=== PATIENT | female | born 1935 | race Caucasian/White ===

== ENCOUNTER → 2017-04-11 | Outpatient (REF) | payer MEDICARE, OTHER ==
[2017-04-11 11:13] LABS: CALCIUM LEVEL 9.8 MG/DL (8.8-10.2)
== END ==
LOC: M LABDRAW1 09:07
PROVIDERS: ATTEND Internal Medicine Endocrinology, Diabetes & Metabolism
DX: M81.0 Age-related osteoporosis without current pathological fracture (principal); E55.9 Vitamin D deficiency, unspecified

== ENCOUNTER → 2017-06-22 | Outpatient (CLI) | payer MEDICARE, OTHER ==
[~2017-06-22] MED LIST: AMLO5TAB2 PO; BYST10TA2 PO; CINA30TA PO; CVS20TAB PO; GAS-80CH PO; LEVO50TA5 PO; MECL12.575 PO; OCUVTAB4 PO; OSCA200T PO; SIMV20TA2 PO; VITA100067 PO
--- NOTE | 2017-06-22 11:15 | REP ---
Thoracic spine three views: Comparison is 04/30/2014. Diffuse demineralization is again identified. There is thoracic scoliosis convex right in the mid to lower thoracic spine and left in the lumbar spine. This is unchanged. There is disc space narrowing and osteophytic formation at every thoracic level, unchanged, compatible with diffuse degenerative disc disease. This is unchanged. Vertebral body heights and alignment are normal and unchanged. No compression deformities are identified. On the lateral view there is parallax artifact effecting the lower thoracic vertebra. This is unchanged. Impression: Demineralization, scoliosis, and multilevel degenerative disc disease. No change from the prior study. No evidence of acute compression deformity. Signed by Jarred Solis MD 06/22/2017 11:07 A
== END ==
LOC: M ADAMS 10:39
PROVIDERS: ATTEND Physician Assistant
DX: M54.6 Pain in thoracic spine (principal); M51.34 Other intervertebral disc degeneration, thoracic region

== ENCOUNTER 2017-07-02 11:39 | Emergency (ER) | payer MEDICARE, OTHER ==
[~2017-07-02] VITALS: Ht 170.2 cm; Wt 45.5 kg
[2017-07-02] MEDS ORDERED: MECL12.575 PO (11:56)
[2017-07-02] MEDS ORDERED: OSCA200T PO (11:56)
[2017-07-02] MEDS ORDERED: CVS20TAB PO (11:56)
[2017-07-02] MEDS ORDERED: LEVO50TA5 PO (11:56)
[2017-07-02] MEDS ORDERED: GAS-80CH PO (11:56)
[2017-07-02] MEDS ORDERED: OCUVTAB4 PO (11:56)
[2017-07-02] MEDS ORDERED: VITA100067 PO (11:56)
[2017-07-02] MEDS ORDERED: CINA30TA PO (11:56)
[2017-07-02 12:46] LABS: BASO % 0.2 % (0.0-1.0); EOS % 0.7 % (0.0-3.0); LARGE UNSTAINED CELL # 0.1 K/mm3 (0.0-0.4); LARGE UNSTAINED CELL % 0.9 % (0.0-4.0); LYMPH # 0.6 K/mm3 (1.5-4.5); LYMPH % 9.9 % (24.0-44.0); MEAN CORPUSCULAR HEMOGLOBIN 30.4 pg (27.0-33.0); MEAN CORPUSCULAR HGB CONC 34.3 g/dl (32.0-36.5); MEAN CORPUSCULAR VOLUME 88.7 fl (80.0-96.0); MONO # 0.3 K/mm3 (0.0-0.8); MONO % 4.9 % (0.0-5.0); NEUTROPHILS % 83.5 % (36.0-66.0); PLATELET COUNT, AUTOMATED 148 k/mm3 (150-450); RED CELL DISTRIBUTION WIDTH 12.9 % (11.5-14.5)
[2017-07-02 12:55] LABS: INR 0.95
[2017-07-02 13:23] LABS: ALBUMIN 4.1 GM/DL (3.2-5.2); ALKALINE PHOSPHATASE 57 U/L (45-117); ALT/SGPT 17 U/L (12-78); ANION GAP 5 MEQ/L (8-16); AST/SGOT 17 U/L (15-37); BILIRUBIN,DIRECT 0.1 MG/DL (0.0-0.2); BILIRUBIN,TOTAL 0.5 MG/DL (0.2-1.0); BLOOD UREA NITROGEN 14 MG/DL (7-18); CALCIUM LEVEL 9.7 MG/DL (8.8-10.2); CARBON DIOXIDE LEVEL 31 MEQ/L (21-32); CHLORIDE LEVEL 105 MEQ/L (98-107); CREATININE FOR GFR 0.89 MG/DL (0.55-1.02); GLOMERULAR FILTRATION RATE > 60.0 (>32); GLUCOSE, FASTING 101 MG/DL (83-110); SODIUM LEVEL 141 MEQ/L (136-145)
[2017-07-02 13:25] LABS: ALBUMIN/GLOBULIN RATIO 1.17 (1.00-1.93); TOTAL PROTEIN 7.6 GM/DL (6.4-8.2)
--- NOTE | 2017-07-02 13:29 | ECGEPIP ---
Stationary ECG Study [facility] - ED Test Date: 2017-07-02 Pat Name: KALEY ARENAS Department: Room: - Gender: F Except[employer] Needs Teacher: NICK : 1935 Requested By: LOPEZ Bo Order Number: [id number] Reading MD: Nadia Hanson Measurements Intervals [place] Rate: 68 P: 75 [place]: 162 QRS: 81 QRSD: 122 T: 52 QT: 389 QTc: 416 Interpretive Statements SINUS RHYTHM RIGHT BUNDLE BRANCH BLOCK NO PRIOR FOR COMPARISON Electronically Signed On 07-02-2017 13:29:52 EDT by Nadia Hanson
[2017-07-02 13:45] VITALS: O2SAT 93
--- NOTE | 2017-07-02 14:31 | REP ---
CHEST X-RAY: Two views. HISTORY: Dyspnea and cough. Comparison chest x-ray September 11, 2010. FINDINGS: The patient is rotated somewhat to the left. The lungs are hyperinflated but free of infiltrate. Heart size is normal. EKG electrodes are seen. There are mild degenerative changes in the thoracic spine. IMPRESSION: Hyperinflation. Otherwise no acute disease. Signed by James Mixon MD 07/02/2017 03:25 P
[2017-07-02 15:43] VITALS: BP 184/80
[2017-09-14] MEDS ORDERED: SIMV20TA2 PO (23:48)
[2017-09-14] MEDS ORDERED: BYST10TA2 PO (23:48)
[2017-09-14] MEDS ORDERED: AMLO5TAB2 PO (23:48)
== END 2017-07-02 15:55 | disposition home or self-care (01) ==
LOC: M ED 11:39
DX: R06.02 Shortness of breath (principal); E78.5 Hyperlipidemia, unspecified; E07.9 Disorder of thyroid, unspecified; M81.0 Age-related osteoporosis without current pathological fracture; Z87.09 Personal history of other diseases of the respiratory system; Z79.899 Other long term (current) drug therapy; Z87.891 Personal history of nicotine dependence

== ENCOUNTER → 2017-09-18 | Outpatient (REF) | payer MEDICARE, OTHER ==
[2017-09-18 13:30] LABS: MEAN CORPUSCULAR HGB CONC 33.1 g/dl (32.0-36.5); MEAN CORPUSCULAR VOLUME 87.6 fl (80.0-96.0); PLATELET COUNT, AUTOMATED 157 10^3/uL (150-450); WHITE BLOOD COUNT 6.9 10^3/uL (4.0-10.0)
[2017-09-18 14:05] LABS: ALBUMIN 3.9 GM/DL (3.2-5.2); ALBUMIN/GLOBULIN RATIO 1.11 (1.00-1.93); BILIRUBIN,TOTAL 0.6 MG/DL (0.2-1.0); CALCIUM LEVEL 9.2 MG/DL (8.8-10.2); CREATININE FOR GFR 0.96 MG/DL (0.55-1.02); GLOMERULAR FILTRATION RATE 59.5 (>32); PERCENT SATURATION 18.1 % (13.2-45.0); POTASSIUM SERUM 3.9 MEQ/L (3.5-5.1); THYROXINE (T4) 14.1 UG/DL (4.5-12.0); TOTAL PROTEIN 7.4 GM/DL (6.4-8.2)
== END ==
LOC: M LABDRAW1 12:04
PROVIDERS: ATTEND Family Medicine
DX: D64.9 Anemia, unspecified (principal); R53.83 Other fatigue; E55.9 Vitamin D deficiency, unspecified

== ENCOUNTER → 2017-10-20 | Outpatient (REF) | payer MEDICARE, OTHER ==
[2017-10-20 21:00] LABS: CALCIUM LEVEL 9.9 MG/DL (8.8-10.2)
== END ==
LOC: M LABDRWAD 20:18 → M LAB REF 20:18
PROVIDERS: ATTEND Internal Medicine Endocrinology, Diabetes & Metabolism
DX: M81.0 Age-related osteoporosis without current pathological fracture (principal); E55.9 Vitamin D deficiency, unspecified

== ENCOUNTER → 2018-03-26 | Outpatient (CLI) | payer MEDICARE, OTHER ==
[~2018-03-26] MED LIST changes: -AMLO5TAB2 PO; -BYST10TA2 PO; -CINA30TA PO; -CVS20TAB PO; -GAS-80CH PO; +GASTROGRAFIN SOLUTION 30ML (Q9963) As Ordered; +ISOVUE-370 76% 100ML VIAL (Q9967) As Ordered; -LEVO50TA5 PO; -MECL12.575 PO; -OCUVTAB4 PO; -OSCA200T PO; -SIMV20TA2 PO; -VITA100067 PO
== END ==
LOC: M RAD 12:49
DX: R19.04 Left lower quadrant abdominal swelling, mass and lump (principal)
CPT/HCPCS: Q9963

== ENCOUNTER → 2018-05-12 | Outpatient (REF) | payer MEDICARE, OTHER ==
[2018-05-12 12:51] LABS: CALCIUM LEVEL 9.7 MG/DL (8.8-10.2)
== END ==
LOC: M LABDRAW1 11:09
DX: M81.0 Age-related osteoporosis without current pathological fracture (principal)
CPT/HCPCS: 82310

== ENCOUNTER → 2018-12-14 | Outpatient (REF) | payer MEDICARE, OTHER ==
[~2018-12-14] MED LIST changes: +AMLO5TAB6 PO; +BYST10TA2 PO; +CINA30TA PO; +CVS20TAB PO; +GAS-80CH PO; -GASTROGRAFIN SOLUTION 30ML (Q9963) As Ordered; -ISOVUE-370 76% 100ML VIAL (Q9967) As Ordered; +LEVO50TA5 PO; +MECL12.575 PO; +OCUVTAB4 PO; +OSCA200T PO; +SIMV20TA2 PO; +VITA100067 PO
[2018-12-14 19:41] LABS: CALCIUM LEVEL 9.4 MG/DL (8.8-10.2); GLOMERULAR FILTRATION RATE 56.5 (>32); POTASSIUM SERUM 3.8 MEQ/L (3.5-5.1)
== END ==
LOC: M LABDRWAD 18:45 → M LAB REF 18:45
PROVIDERS: ATTEND Nurse Practitioner Family
DX: M81.0 Age-related osteoporosis without current pathological fracture (principal); E55.9 Vitamin D deficiency, unspecified

== ENCOUNTER → 2019-05-03 | Outpatient (REF) | payer MEDICARE, OTHER ==
[~2019-05-03] MED LIST changes: -CINA30TA PO; +CINA30TA4 PO; -CVS20TAB PO; +OMEP20TA9 PO
== END ==
LOC: M LAB REF 10:12
PROVIDERS: ATTEND Radiology Diagnostic Radiology
DX: D05.12 Intraductal carcinoma in situ of left breast (principal)

== ENCOUNTER → 2019-06-17 | Outpatient (REF) | payer MEDICARE, OTHER | LOC: M LABDRAW1 11:00 | PROVIDERS: ATTEND Nurse Practitioner Family | DX: M81.0 Age-related osteoporosis without current pathological fracture (principal) ==

== ENCOUNTER → 2019-09-03 | Outpatient (REF) | payer MEDICARE, OTHER ==
[2019-09-03 17:34] LABS: ALBUMIN 4.1 GM/DL (3.2-5.2); BILIRUBIN,TOTAL 0.6 MG/DL (0.2-1.0); CALCIUM LEVEL 8.8 MG/DL (8.8-10.2); CREATININE FOR GFR 0.97 MG/DL (0.55-1.30); GLOMERULAR FILTRATION RATE 58.5 (>32); POTASSIUM SERUM 3.8 MEQ/L (3.5-5.1); TOTAL PROTEIN 7.5 GM/DL (6.4-8.2)
[2019-09-03 17:45] LABS: BASO % 0.5 % (0.0-1.0); EOS # 0.2 10^3/uL (0.0-0.5); EOS % 2.8 % (0.0-3.0); HEMATOCRIT 42.6 % (36.0-47.0); HEMOGLOBIN 13.7 g/dl (12.0-15.5); LYMPH # 2.4 10^3/uL (1.5-5.0); LYMPH % 28.7 % (24.0-44.0); MEAN CORPUSCULAR HEMOGLOBIN 28.5 pg (27.0-33.0); MEAN CORPUSCULAR HGB CONC 32.2 g/dl (32.0-36.5); MEAN CORPUSCULAR VOLUME 88.8 fl (80.0-96.0); MONO # 0.7 10^3/uL (0.0-0.8); MONO % 8.4 % (0.0-5.0); NEUTROPHILS # 4.9 10^3/uL (1.5-8.5); NEUTROPHILS % 59.4 % (36.0-66.0); PLATELET COUNT, AUTOMATED 172 10^3/uL (150-450); WHITE BLOOD COUNT 8.2 10^3/uL (4.0-10.0)
== END ==
LOC: M LABDRWAD 16:29
PROVIDERS: ATTEND Physician Assistant Medical
DX: K29.00 Acute gastritis without bleeding (principal)

== ENCOUNTER 2019-12-06 14:21 | Emergency (ER) | payer MEDICARE, OTHER ==
[~2019-12-06 14:21] MED LIST changes: -MECL12.575 PO; +MECL12.589 PO; -SIMV20TA2 PO; +SIMV20TA22 PO
[2019-12-06] MEDS ORDERED: FLUO20CA19 PO (14:46)
[2019-12-06 15:51] LABS: BASO % 0.3 % (0.0-1.0); EOS # 0.1 10^3/uL (0.0-0.5); EOS % 0.9 % (0.0-3.0); HEMATOCRIT 40.9 % (36.0-47.0); HEMOGLOBIN 13.4 g/dl (12.0-15.5); LYMPH # 1.1 10^3/uL (1.5-5.0); LYMPH % 15.3 % (24.0-44.0); MEAN CORPUSCULAR HEMOGLOBIN 28.8 pg (27.0-33.0); MEAN CORPUSCULAR HGB CONC 32.8 g/dl (32.0-36.5); MEAN CORPUSCULAR VOLUME 87.8 fl (80.0-96.0); MONO # 0.7 10^3/uL (0.0-0.8); MONO % 8.8 % (0.0-5.0); NEUTROPHILS # 5.5 10^3/uL (1.5-8.5); NEUTROPHILS % 74.4 % (36.0-66.0); PLATELET COUNT, AUTOMATED 177 10^3/uL (150-450); RED BLOOD COUNT 4.66 10^6/uL (4.00-5.40); WHITE BLOOD COUNT 7.4 10^3/uL (4.0-10.0)
[2019-12-06 16:21] LABS: BLOOD UREA NITROGEN 12 MG/DL (7-18); CALCIUM LEVEL 8.8 MG/DL (8.8-10.2); CARBON DIOXIDE LEVEL 27 MEQ/L (21-32); CHLORIDE LEVEL 108 MEQ/L (98-107); CK-MB VALUE MASS < 1.0 NG/ML (<3.6); CPK CREATINE PHOSPHOKINASE 58 U/L (26-192); CREATININE FOR GFR 0.88 MG/DL (0.55-1.30); GLOMERULAR FILTRATION RATE > 60.0 (>32); GLUCOSE, FASTING 110 MG/DL (70-100); MB/CK RELATIVE INDEX 1.72 (< OR =4); NT-PRO BNP 268 PG/ML (<450); POTASSIUM SERUM 3.6 MEQ/L (3.5-5.1); SODIUM LEVEL 141 MEQ/L (136-145); TROPONIN I < 0.02 NG/ML (< 0.10)
[2019-12-06 17:21] LABS: INFLUENZA A AMPLIFICATION NEGATIVE (NEGATIVE); INFLUENZA B AMPLIFICATION NEGATIVE (NEGATIVE)
--- NOTE | 2019-12-06 17:50 | REP ---
PORTABLE CHEST: AP portable view of the chest is performed and compared to prior study of 07/02/2017. There is bibasilar pleural and parenchymal scarring which is stable. There is no acute infiltrate or pulmonary edema. The heart is not enlarged and there is calcification of the thoracic aorta. The mediastinal silhouette is unchanged. There is curvature of the thoracic spine convex to the right with degenerative changes. IMPRESSION: Stable chronic findings without evidence of acute pulmonary disease. Electronically Signed by Jarred Ayala MD 12/08/2019 12:11 P
[2019-12-06 17:56] VITALS: BP 160/76
--- NOTE | 2019-12-06 18:53 | ECGEPIP ---
[facility] - ED Test Date: 2019-12-06 Pat Name: KALEY ARENAS Department: Room: - Gender: Female Insurance Coordinator: herminia : [id number] Requested By: CHAD NICHOLAS Order Number: [id number] Reading MD: Mac Childs Measurements Intervals [address] Rate: 72 P: 43 [place]: 113 QRS: 72 QRSD: 146 T: 49 QT: 410 QTc: 449 Interpretive Statements SINUS RHYTHM WITH SHORT SC INTERVAL WITH OCCASIONAL VENTRICULAR PREMATURE COMPLEXES RIGHT BUNDLE BRANCH BLOCK NSTTW ABNORMALITIES SIMILAR TO 07/02/17 Electronically Signed on 12-06-2019 18:53:12 EST by Mac Childs
== END 2019-12-06 18:18 | disposition home or self-care (01) ==
LOC: EDBD 14:21 → M ED 14:21
DX: R06.00 Dyspnea, unspecified (principal); I45.10 Unspecified right bundle-branch block; I10 Essential (primary) hypertension; E78.5 Hyperlipidemia, unspecified; K21.9 Gastro-esophageal reflux disease without esophagitis; E03.9 Hypothyroidism, unspecified; Z79.899 Other long term (current) drug therapy

== ENCOUNTER → 2020-06-20 | Outpatient (REF) | payer MEDICARE, OTHER ==
[~2020-06-20] MED LIST changes: +AMLO1TAB24 PO; -AMLO5TAB6 PO; +FLUO20CA22 PO
[2020-08-03 13:36] LABS: CALCIUM LEVEL 8.7 MG/DL (8.8-10.2)
[2020-08-03 13:37] LABS: TOTAL 25(OH) VITAMIN D 26.9 NG/ML (30.0-100.0)
== END ==
LOC: M PLALAB 09:57
PROVIDERS: ATTEND Internal Medicine Endocrinology, Diabetes & Metabolism
DX: M81.0 Age-related osteoporosis without current pathological fracture (principal)

== ENCOUNTER 2020-09-01 12:30 | Emergency (ER) | payer MEDICARE, OTHER ==
[~2020-09-01] VITALS: Ht 170.2 cm; Wt 43.9 kg
--- NOTE | 2020-09-01 13:12 | REP ---
INDICATION: fall COMPARISON: None. TECHNIQUE: Axial noncontrast images from the skull base to the thoracic inlet with coronal reformations. This CT examination was performed using the following dose reduction techniques: Automated exposure control, adjustment of mA and/or kv according to the patient's size, and use of iterative reconstruction technique. FINDINGS: Atrophy with periventricular leukomalacia and microvascular ischemic changes are appreciated. The ventricles and sulci are symmetric. Ayala-white differentiation is maintained. There is no evidence for acute intracranial hemorrhage, mass/mass effect, pathology or infarction. No extra-axial fluid collection. Calvarium is intact. Paranasal sinuses and mastoid air cells are clear. IMPRESSION: Atrophy and microvascular ischemic changes. No acute intracranial hemorrhage, infarction, or mass/mass effect. <Electronically signed by Clark Kam > 09/01/20 [id number]
--- NOTE | 2020-09-01 13:22 | REP ---
INDICATION: fall. COMPARISON: None. TECHNIQUE: CT cervical spine performed in the axial plane, with sagittal and coronal reconstruction images performed. FINDINGS: There is no acute compression fracture or malalignment. There is no prevertebral soft tissue swelling. There is normal cervical lordosis. There is mild curvature of the cervical spine convex to the left. Moderate spurring is noted of C4 through C7 with moderate disc space narrowing and subchondral sclerosis at the intervening disc spaces. There is minimal spurring at the anterior inferior aspect of C3. There is mild spinal canal narrowing at C5-6 and C6-7 due to posterior uncovertebral spurring and diffuse disc bulging. IMPRESSION: No evidence of acute fracture or dislocation. Degenerative changes as above. <Electronically signed by Jarred Ayala > 09/01/20 [id number]
--- NOTE | 2020-09-01 14:35 | REP ---
INDICATION: fall COMPARISON: None. TECHNIQUE: AP and frog-lateral views of the hip FINDINGS: Generalized age-related changes include subtle increased sclerosis to the acetabulum with minimal joint space narrowing. No further overt osteoarthritic or significant degenerative changes are appreciated. No evidence for acute or healed injury. Surrounding soft tissues are normal. Atherosclerotic disease noted. IMPRESSION: Mild generalized age-related changes. No acute fracture or dislocation. <Electronically signed by Clark Kam > 09/01/20 [id number]
--- NOTE | 2020-09-01 14:36 | REP ---
INDICATION: fall Nontraumatic hip pain. COMPARISON: None. TECHNIQUE: Frontal view of the pelvis with neutral and frog lateral views of the hip. FINDINGS: Osseous structures and joint spaces are intact and demonstrate relatively mild symmetric age-related degenerative changes. Hip joints appear symmetric on frontal pelvic radiograph. No acute fracture dislocation. No evidence for healed injury. Atherosclerotic disease. IMPRESSION: Atherosclerotic changes of the pelvis and right hip series. No acute fracture or dislocation. <Electronically signed by Clark Kam > 09/01/20 [id number]
[2020-09-01 14:49] VITALS: BP 140/75
== END 2020-09-01 15:05 | disposition home or self-care (01) ==
LOC: M ED 12:30
DX: S00.93XA Contusion of unspecified part of head, initial encounter (principal); S70.02XA Contusion of left hip, initial encounter; S10.93XA Contusion of unspecified part of neck, initial encounter; W18.30XA Fall on same level, unspecified, initial encounter; Y92.009 Unspecified place in unspecified non-institutional (private) residence as the place of occurrence of the external cause; Y93.89 Activity, other specified; Y99.8 Other external cause status; E03.9 Hypothyroidism, unspecified; I10 Essential (primary) hypertension; E78.5 Hyperlipidemia, unspecified; Z79.890 Hormone replacement therapy; Z79.899 Other long term (current) drug therapy; Z91.81 History of falling; Z85.118 Personal history of other malignant neoplasm of bronchus and lung; Z98.890 Other specified postprocedural states